=== PATIENT | female | born 1965 | race Caucasian/White ===

== ENCOUNTER 2021-04-10 17:52 | Emergency (ER) | payer BC, SELFPAY ==
[2021-04-10 17:53] VITALS: BP 160/93; PULSE 77; RESP 20; TEMP 36.9; O2SAT 98
[2021-04-10 19:41] VITALS: BP 142/85; PULSE 70; RESP 18; TEMP 36.6; O2SAT 100
--- NOTE | 2021-04-10 19:52 | ED.GENADULT ---
HPI - General Adult General Chief complaint: Unspecified Stated complaint: out of vicodin Time Seen by Provider: 04/10/21 19:42 Source: RN notes reviewed History of Present Illness HPI narrative: Patient presents emergency department from home for medication refill. Patient states she is on hydrocodone 7.5 for chronic neck and back pain states she is followed by b[facility] and painter and had a virtual appointment by phone on however the prescription that she is was to refill did not make it to the pharmacy there is not any on-call for her bumper and painter she try to contact as well as Connie patient states she did take half a pill this morning as well as this afternoon as she only had 1 pill left she denies any new trauma or injury states that her current pain is consistent with her chronic pain denies any other symptoms at this time Related Data Home Medications Medication Instructions Recorded Confirmed gabapentin 04/10/21 hydrocodone-acetaminophen 04/10/21 Allergies Allergy/AdvReac Type Severity Reaction Status Date / Time codeine Allergy Itching Verified 04/10/21 19:43 Penicillins Allergy Unknown Verified 04/10/21 19:43 tramadol Allergy Insomnia Verified 04/10/21 19:44 Review of Systems Review of Systems: Gen.: Denies fevers or chills Eyes: Denies eye pain or visual change ENT: Denies congestion Respiratory: Denies shortness of breath CV: Denies chest pain GI: Denies abdominal pain nausea, emesis Musculoskeletal: See HPI Neuro: Denies numbness, tingling, weakness or focal weakness Skin: Denies rash Except as documented, all other systems reviewed and negative [facility] Past Medical History Medical History (Updated 04/10/21 @ 19:54 by Tay Recio DO) Chronic neck pain Social History Social History (Updated 04/10/21 @ 19:53 by Tay Recio DO) Smoking status: Current every day smoker Exam Narrative: APPEARANCE: No acute distress, nontoxic, resting in bed EYES: EOMI HEENT: Normocephalic, atraumatic, OMM RESPIRATORY: No respiratory distress Clear to auscultation bilaterally with no rhonchi wheezing or rales. CARDIOVASCULAR: Regular rate and rhythm without murmurs rubs or gallops. ABDOMINAL: Soft, nontender MUSCULOSKELETAl: Moves all extremities. NEURO: Awake and alert. Following commands, speech normal, no focal deficits SKIN:: Warm, dry. No rashes lesions or abrasions PSYCHIATRIC: Normal affect/mood, Course Course Emergency Course: Patient did drive herself to the emergency department discussed with the patient I would refill short amount of medication approximately 7 hydrocodone to get her through to Monday morning on her pain management doctor's office will reopen I did review the patient's previously filled medications and she has not recently had any [place] filled since 03/05/2021 Discussed with patient results of workup and diagnosis. Discussed need for follow-up with primary care, proper use of medication, and reasons to return to the emergency department. Patient understands and agrees to current treatment plan Vital Signs Vital signs: Vital Signs Temperature 98.4 F 04/10/21 17:53 Pulse Rate 77 04/10/21 17:53 Respiratory Rate 20 04/10/21 17:53 Blood Pressure 160/93 H 04/10/21 17:53 Pulse Oximetry 98 04/10/21 17:53 Temperature 97.9 F 04/10/21 19:41 Pulse Rate 70 04/10/21 19:41 Respiratory Rate 18 04/10/21 19:41 Blood Pressure 142/85 H 04/10/21 19:41 Pulse Oximetry 100 04/10/21 19:41 Medical Decision Making Vital Signs Vital Signs: Vital Signs Temperature 98.4 F 04/10/21 17:53 Pulse Rate 77 04/10/21 17:53 Respiratory Rate 20 04/10/21 17:53 Blood Pressure 160/93 H 04/10/21 17:53 Pulse Oximetry 98 04/10/21 17:53 Temperature 97.9 F 04/10/21 19:41 Pulse Rate 70 04/10/21 19:41 Respiratory Rate 18 04/10/21 19:41 Blood Pressure 142/85 H 04/10/21 19:41 Pulse Oximetry 100 04/10/21 1
== END 2021-04-10 20:11 | disposition home or self-care (01) ==
PROVIDERS: Emergency Provider Emergency Medicine
DX: G89.29 Other chronic pain (principal); M54.2 Cervicalgia; F17.200 Nicotine dependence, unspecified, uncomplicated
CPT/HCPCS: 99283

== ENCOUNTER 2021-11-08 08:15 | Outpatient (CLI) | payer BC, SELFPAY ==
--- NOTE | ~2021-11-08 | MM_ITS ---
EXAMINATION: MM screening balta BI w ailin HISTORY: Screening TECHNIQUE: Craniocaudal and mediolateral oblique 3-D tomosynthesis images were obtained and synthetic 2-D images were generated. CAD analysis was submitted and interpreted. COMPARISON: No prior mammogram is available for comparison at this institution. BREAST PARENCHYMAL COMPOSITION: There are scattered areas of fibroglandular density. FINDINGS: There is no evidence of suspicious mass, calcification, or architectural distortion to sugg est malignancy in either breast. There has been no suspicious interval change. IMPRESSION: 1. No mammographic evidence of malignancy. 2. Recommend routine screening mammography in one year. BI-RADS Category 1: Negative Reviewed, dictated and finalized at location A.
--- NOTE | ~2021-11-08 | DEXA_ITS ---
Bone Density Report Name: PATRICA THOMAS Age: 56 Sex: Female Ethnicity: White Date of : 1965 Indication: postmenopausal; height loss; prior fracture; hysterectomy; Referring Provider: TERESO YORK Study: Bone densitometry was performed. Exam Date: November 08, 2021 Accession number: [id number] Bone Density: Region BMD T-score Z-score Classification AP Spine (L1, L4) 1.044 0.1 1.2 Normal Femoral Neck (Left) 0.682 -1.5 -0.4 Osteopenia Total Hip (Left) 0.747 -1.6 -0.8 Osteopenia Total Hip Bilateral Avg 0.767 -1.5 -0.7 Osteopenia Femoral Neck (Right) 0.705 -1.3 -0.2 Osteopenia Total Hip (Right) 0.786 -1.3 -0.5 Osteopenia World Health Organization criteria for BMD impression classify patients as: Normal (T-score at or above -1.0), Osteopenia (T-score between -1.0 and -2.5), or Osteoporosis (T-score at or below -2.5). 10-year Fracture Risk(1): Major Osteoporotic Fracture 13% Hip Fracture 1.8% Reported Risk Factors: [place] (), Neck BMD=0.682, BMI=27.6, previous fracture, smoking (1) FRAX(R) Version 3.08. Fracture probability calculated for an untreated patient. Fracture probability may be lower if the patient has received treatment. Clinical Information Provided by Patient: Has had a low trauma fracture Smokes Has the following medical conditions: Hysterectomy Patient maximum height was 69 Menopause Age: 33 Drinks caffeinated beverages Onset of menses at age 11 Number of children 3 Impression: The patient has low bone mass, based on the Left Total Hip T-score. The patient has an estimated ten-year risk of hip fracture of 1.8% and an estimated ten-year risk of major fracture of 13%, based on the WHO FRAX algorithm. The patient has risk factors, including: smoking, previous fracture. Discussion: BONE DENSITY IS LOW AT ONE OR MORE SKELETAL SITES. This patient's lowest T-score is low at one or more skeletal sites. It meets the World Health Organization's (WHO) criteria for ?low bone mass? (T-score between -1.0 and -2.5). The patient's 10-year risk of fracture as calculated by FRAX is less than the threshold where pharmacological therapy is recommended by the National Osteoporosis Foundation (NOF). However, all treatment decisions require clinical judgment and consideration of individual patient factors, including patient preferences, comorbidities, previous drug use, risk factors not captured in the FRAX model (e.g., frailty, falls, vitamin D deficiency, increased bone turnover, interval significant decline in bone density) and possible under or overestimation of fracture risk by FRAX. The patient should follow a healthful lifestyle (good nutrition with adequate calcium and vitamin D, and appropriate weight-bearing exercise). Follow-Up: Consider repeating this study in 2 to 3 years to reasse
== END 2021-11-08 08:16 | disposition home or self-care (01) ==
LOC: ANHIMG 08:26
PROVIDERS: PCP Emergency Medicine; Visit Provider Emergency Medicine
DX: Z12.31 Encounter for screening mammogram for malignant neoplasm of breast (principal); Z78.0 Asymptomatic menopausal state; M85.852 Other specified disorders of bone density and structure, left thigh; M85.851 Other specified disorders of bone density and structure, right thigh
CPT/HCPCS: 77063; 77067; 77080

== ENCOUNTER 2023-04-04 13:32 | Outpatient (CLI) | payer BC, SELFPAY ==
--- NOTE | 2023-04-04 14:00 | NEURO_ITS ---
Impression: # Complain of severe back pain. No history of surgery and not diabetic. # Normal Nerve Conduction Study including motor, sensory and F-waves. # Needle/EMG exam not requested. # Clinical correlation recommended. Nerve Conduction Studies Anti Sensory Summary Table Stim Site NR Peak (ms) P-T Amp (?V) Site1 Site2 Delta-P (ms) Dist (cm) Brenton (m/s) Left Sup Fibular Anti Sensory (Ant Lat Mall) 14 cm 3.0 15.1 14 cm Ant Lat Mall 3.0 16.0 53 Right Sup Fibular Anti Sensory (Ant Lat Mall) 14 cm 3.3 4.0 14 cm Ant Lat Mall 3.3 16.0 48 Left Sural Anti Sensory (Lat Mall) Calf 3.5 4.6 Calf Lat Mall 3.5 16.0 46 Right Sural Anti Sensory (Lat Mall) Calf 3.4 6.5 Calf Lat Mall 3.4 16.0 47 Motor Summary Table Stim Site NR Onset (ms) O-P Amp (mV) Site1 Site2 Delta-0 (ms) Dist (cm) Brenton (m/s) Left Peroneal Motor (Vastus Med) Ankle 3.7 3.6 Popit Ankle 8.0 43.0 54 Popit 11.7 2.9 Right Peroneal Motor (Vastus Med) Ankle 3.6 3.5 Popit Ankle 8.1 40.0 49 Popit 11.7 2.8 Left Tibial Motor (Abd Rainey Brev) Ankle 3.9 4.2 Knee Ankle 9.0 43.0 48 Knee 12.9 3.4 Right Tibial Motor (Abd Rainey Brev) Ankle 3.4 2.2 Knee Ankle 9.3 42.0 45 Knee 12.7 1.6 F Wave Studies NR F-Lat (ms) L-R F-Lat (ms) Left Peroneal (Mrkrs) (EDB) 52.34 0.90 Right Peroneal (Mrkrs) (EDB) 51.44 0.90 Left Tibial (Mrkrs) (Abd Hallucis) 52.03 0.64 Right Tibial (Mrkrs) (Abd Hallucis) 52.67 0.64 MTDD
== END 2023-04-04 13:33 | disposition home or self-care (01) ==
PROVIDERS: PCP Emergency Medicine; Visit Provider Pain Medicine Pain Medicine
DX: M47.816 Spondylosis without myelopathy or radiculopathy, lumbar region (principal); M54.16 Radiculopathy, lumbar region; M46.1 Sacroiliitis, not elsewhere classified; M51.36 Other intervertebral disc degeneration, lumbar region; M54.40 Lumbago with sciatica, unspecified side; M79.7 Fibromyalgia
CPT/HCPCS: 95910

== ENCOUNTER 2023-04-26 18:08 | Emergency (ER) | payer BC, SELFPAY ==
--- NOTE | 2023-04-26 18:11 | PC.NURSE ---
Pt requesting wait time, she states she is very sick and is going to another ER
== END 2023-04-26 18:10 | disposition left against medical advice (07) ==
LOC: ANHED 18:15
PROVIDERS: PCP Emergency Medicine
DX: Z53.21 Procedure and treatment not carried out due to patient leaving prior to being seen by health care provider (principal)
CPT/HCPCS: 99199

== ENCOUNTER 2023-04-26 18:30 | Emergency (ER) | payer BC, SELFPAY ==
--- NOTE | ~2023-04-26 | XR_ITS ---
XR chest 2V DATE: 04/26/2023 18:51 INDICATION: Wheezing and cough for one week TECHNIQUE: 2 views COMPARISON: 06/26/2008 PA and lateral chest FINDINGS: Normal heart size. No hilar or mediastinal enlargement. Calcified left hilar and aortopulmo nary window nodes consistent with old granulomatous disease. No pulmonary infiltrate or consolidation , pleural effusion or pulmonary vascular congestion or pneumothorax is detected. IMPRESSION: No active cardiopulmonary disease Reviewed, dictated and finalized at location A.
[2023-04-26 18:36] VITALS: BP 118/80; PULSE 69; RESP 16; TEMP 36.6; O2SAT 97
--- NOTE | 2023-04-26 18:36 | ED.URI ---
HPI - URI/Sore Throat General Chief Complaint: Upper Respiratory Infection Stated Complaint: Chest Pain,Cough,Headache,Fever Source: patient and RN notes reviewed Mode of arrival: ambulatory Limitations: no limitations History of Present Illness HPI Narrative: Patient is a 58-year-old female who presents to the [facility] with complaints of cough and congestion for the past 8 days. Patient reports a frequent productive cough that was originally productive with yellow sputum. She states that the sputum has become clear but is thicker. She reports chest congestion and some intermittent shortness of breath. Patient has auditory wheezes upon assessment. She denies known history of asthma or COPD. Patient also reports headache and intermittent fevers. She states that these fevers will occasionally break throughout the day and she will experience sweats/chills. She denies sore throat or ear pain. She is currently afebrile. Patient states that she stopped smoking 3 weeks ago. Related Data Home Medications Medication Instructions Recorded Confirmed hydrocodone 10 mg-acetaminophen 1 tablet PO QID PRN Pain, Severe 04/26/23 04/26/23 325 mg tablet Allergies Allergy/AdvReac Type Severity Reaction Status Date / Time codeine Allergy Itching Verified 04/26/23 18:45 Penicillins Allergy Unknown Verified 04/26/23 18:45 tramadol Allergy Insomnia Verified 04/26/23 18:45 Review of Systems Review of Systems: CONSTITUTIONAL: Reports fever, chills, or sweats. EYES: Denies visual changes, redness, or discharge. ENT: Denies otalgia and sore throat. CARDIOVASCULAR: Denies chest pain, palpitations, or edema. RESPIRATORY: Reports cough or dyspnea. GASTROINTESTINAL: Denies abdominal pain, vomiting, or diarrhea. Reports nausea. GENITOURINARY: Denies dysuria or hematuria. SKIN: Denies rash or itching. MUSCULOSKELETAL: Denies back pain or joint pain. Reports myalgia. NEUROLOGIC: Reports headache but denies numbness or weakness. Pertinent positives per HPI. [facility] Past Medical History Medical History Chronic neck pain Social History Social History Smoking status: Current every day smoker Comments At the time of my signature, I reviewed and agree with the nursing past medical, surgical, social, and family history. There is no relevant family history pertinent to the patient complaint. Exam Narrative: GENERAL: This is a well-nourished, well-developed patient, in no apparent distress. HEAD: normocephalic, atraumatic. EYES: Sclera clear/white. Vision is grossly intact. EARS: External ears normal, auditory canals clear and without drainage, TMs normal without perforation. Hearing grossly intact. NOSE: External nose normal. Mild nasal congestion. THROAT: Mucous membranes moist, posterior pharynx clear. NECK: Neck supple, non-tender without lymphadenopathy, masses or thyromegaly. CARDIOVASCULAR: Regular rate and rhythm without murmurs, gallops, or rubs. RESPIRATORY: Diffuse wheezes throughout all lung stark. GASTROINTESTINAL: Abdomen soft, non-tender, nondistended. Bowel sounds are active. No hepato-splenomegaly, or palpable masses. No guarding. SKIN: warm, intact with no suspicious lesions or rash, good texture and turgor. NEURO: awake, alert, and oriented to person, place and time. There were no obvious focal neurologic abnormalities. Course Course Level of Care: Express Care Visit Vital Signs Vital signs: Vital Signs Temperature 98 F 04/26/23 18:36 Pulse Rate 69 04/26/23 18:36 Respiratory Rate 16 04/26/23 18:36 Blood Pressure 118/80 04/26/23 18:36 Pulse Oximetry 97 04/26/23 18:36 Temperature 98 F 04/26/23 18:36 Pulse Rate 69 04/26/23 18:36 Respiratory Rate 16 04/26/23 18:36 Blood Pressure 118/80 04/26/23 18:36 Pulse Oximetry 97 04/26/23 18:36 Oxygen Delivery Room
[2023-04-26] MEDS: ALBUTEROL SULFATE NEB 2.5 MG/3 ML INH INHALATION (18:51)
[2023-04-26] MEDS: methylPREDNISolone SOD SUCC 125 MG VIAL 80 MG IM (18:53)
[2023-04-26 19:25] VITALS: RESP 18; O2SAT 98
== END 2023-04-26 19:25 | disposition home or self-care (01) ==
PROVIDERS: Emergency Provider Nurse Practitioner; PCP Emergency Medicine
DX: J40 Bronchitis, not specified as acute or chronic (principal); Z20.822 Contact with and (suspected) exposure to COVID-19; Z87.891 Personal history of nicotine dependence
CPT/HCPCS: 71046; 87420; 87426; 96372; 99213; C9803; G0463; J2930

== ENCOUNTER 2023-09-19 19:16 | Emergency (ER) | payer BC, SELFPAY ==
[2023-09-19 19:23] VITALS: BP 119/82; PULSE 71; RESP 16; TEMP 36.4; O2SAT 99
--- NOTE | 2023-09-19 19:39 | ED.URI ---
HPI - URI/Sore Throat General Chief Complaint: Upper Respiratory Infection Stated Complaint: Fever;Headaches Time Seen by Provider: 09/19/23 19:37 Source: patient and RN notes reviewed Mode of arrival: ambulatory Limitations: no limitations History of Present Illness HPI Narrative: 58-year-old female presents concern for one-week history of general malaise, headaches, sinus congestion, sinus pain, cough, body aches. Reports she has taken [id number] medications and used her albuterol inhaler without relief. MD elicited complaint: cough and nasal congestion Related Data Home Medications Medication Instructions Recorded Confirmed hydrocodone 10 mg-acetaminophen 1 tablet PO QID PRN Pain, Severe 04/26/23 04/26/23 325 mg tablet Allergies Allergy/AdvReac Type Severity Reaction Status Date / Time codeine Allergy Itching Verified 09/19/23 19:47 Penicillins Allergy Unknown Verified 09/19/23 19:47 tramadol Allergy Insomnia Verified 09/19/23 19:47 Review of Systems Review of Systems: CONSTITUTIONAL: Reports malaise, chills, sweats, fever. EYES: Denies visual changes, redness, or discharge. ENT: Reports rhinorrhea, congestion, sinus pain. Denies otalgia and sore throat. CARDIOVASCULAR: Denies chest pain, palpitations, or edema. RESPIRATORY: Reports cough, chest congestion. Denies dyspnea. GASTROINTESTINAL: Denies abdominal pain, nausea, vomiting, diarrhea SKIN: Denies rash or itching. MUSCULOSKELETAL: Reports myalgia. NEUROLOGIC: Reports headache. All systems reviewed & are unremarkable except as noted in HPI and below PMFSH Past Medical History Medical History Chronic neck pain Social History Social History Smoking status: Current every day smoker Comments At time of signature, agree with nursing past medical, surgical, social and family history. There is no relevant family history pertinent to the presenting complaint Exam Narrative: GENERAL: Nontoxic-appearing, well-nourished, and in no acute distress. HEAD: Normocephalic EYES: PERRLA, conjunctivae clear ENT: Nares clear, turbinates edematous and erythematous, green discharge. Mucous membranes moist. TM pearly savage with dull light reflex bilaterally; no tragal tenderness. Oropharynx not erythematous without lesions. Tonsils not enlarged and without exudate, no drooling, no hoarseness, no trismus, uvula midline. NECK: Supple. No lymphadenopathy CHEST: Expiratory wheeze throughout, scattered rhonchi, breath sounds equal. No rales, or stridor. No respiratory distress, speaks in full sentences. HEART: Regular rate and rhythm. No murmur heard. SKIN: Warm, dry, no rash. NEURO: Alert and oriented x3. PSYCH: Normal mood and affect Course Course Emergency Course: Patient is aware of diagnosis, understands and agrees to treatment plan. Anticipatory guidance given. Patient agrees to follow-up as directed and is aware of reasons to seek care at the emergency department. Portions of this record may have been created with voice recognition software Level of Care: Express Care Visit Vital Signs Vital signs: Vital Signs Temperature 97.6 F 09/19/23 19:23 Pulse Rate 71 09/19/23 19:23 Respiratory Rate 16 09/19/23 19:23 Blood Pressure 119/82 09/19/23 19:23 Pulse Oximetry 99 09/19/23 19:23 Temperature 97.6 F 09/19/23 19:23 Pulse Rate 71 09/19/23 19:23 Respiratory Rate 16 09/19/23 19:23 Blood Pressure 119/82 09/19/23 19:23 Pulse Oximetry 99 09/19/23 19:23 Reviewed. MDM - URI/Sore Throat MDM Narrative Medical decision making narrative: Differential diagnosis considered: Lombardo virus, strep pharyngitis, allergic rhinitis, upper respiratory tract infection, sinusitis, rhinosinusitis, nasopharyngitis. viral pharyngitis, otitis media, otitis externa, pneumonia, bronchitis, viral cough syndrome, vir
== END 2023-09-19 19:48 | disposition home or self-care (01) ==
PROVIDERS: Emergency Provider Nurse Practitioner; PCP Emergency Medicine
DX: J40 Bronchitis, not specified as acute or chronic (principal)
CPT/HCPCS: 99213; G0463

== ENCOUNTER 2023-10-30 14:48 | Emergency (ER) | payer BC, SELFPAY ==
[2023-10-30 14:50] VITALS: BP 118/60; PULSE 78; RESP 20; TEMP 36.8; O2SAT 99
--- NOTE | 2023-10-30 15:17 | ED.GENADULT ---
[facility] - General Adult General Chief complaint: Extremity Problem,Nontraumatic Stated complaint: R wrist ganglion cyst Source: patient Mode of arrival: ambulatory Limitations: no limitations History of Present Illness [facility] narrative: This is a 58-year-old female who presents to the ED with chief complaint focal area of right wrist swelling for the past several weeks. Reports this is been an ongoing problem intermittently for several months. She was told that it may be a ganglion cyst and has yet to follow up with surgeon. Reports pain but no redness or warmth. Denies numbness or weakness. Denies any further sites of pain Related Data Home Medications Medication Instructions Recorded Confirmed hydrocodone 10 mg-acetaminophen 1 tablet PO QID PRN Pain, Severe 04/26/23 04/26/23 325 mg tablet Allergies Allergy/AdvReac Type Severity Reaction Status Date / Time codeine Allergy Itching Verified 09/19/23 19:47 Penicillins Allergy Unknown Verified 09/19/23 19:47 tramadol Allergy Insomnia Verified 09/19/23 19:47 Review of Systems Review of Systems: All systems as dictated in [facility] Past Medical History Medical History Chronic neck pain Social History Social History Smoking status: Current every day smoker Exam Narrative: GENERAL: Well-appearing, well-nourished, and in no acute distress. HEAD: Normocephalic, atraumatic. EYES: PERRLA and EOMI. ENT: Nares clear, no rhinorrhea or epistaxis. Mucous membranes moist. Oropharynx without tonsillar hypertrophy exudate or other lesions. NECK: Supple. No adenopathy or masses. CHEST: No respiratory distress. Clear to auscultation. No wheezes rales or rhonchi HEART: Regular rate and rhythm. No murmur heard. Normal peripheral pulses. ABDOMEN: Soft, nontender, nondistended, normal active bowel sounds. MSK: Normal range of motion. No edema. SKIN: small cystic area noted to the ulnar side of the room right wrist. No surrounding erythema. No rash. Mild tenderness NEURO: Alert and oriented x3. No focal deficits. PSYCH: Normal mood and affect. Course Vital Signs Vital signs: Vital Signs Temperature 98.3 F 10/30/23 14:50 Pulse Rate 78 10/30/23 14:50 Respiratory Rate 20 10/30/23 14:50 Blood Pressure 118/60 10/30/23 14:50 Pulse Oximetry 99 10/30/23 14:50 Oxygen Delivery Room Air 10/30/23 14:50 Temperature 98.3 F 10/30/23 14:50 Pulse Rate 78 10/30/23 14:50 Respiratory Rate 20 10/30/23 14:50 Blood Pressure 118/60 10/30/23 14:50 Pulse Oximetry 99 10/30/23 14:50 Oxygen Delivery Room Air 10/30/23 14:50 Medical Decision Making MDM Narrative Medical decision making narrative: this is a 58-year-old female who presents to the ED with chief complaint of right wrist swelling intermittently for the past several months. Vitals are normal. Exam shows a cystic lesion to the right wrist, consistent with ganglion cyst. She has been told in the past that she needs to have this evaluated by a surgeon but has not followed up yet. We discussed that drainage is un likely to provide any significant symptomatic relief and we would risk it introducing infection. She feels more comfortable with not having the restrained here. She would like to follow-up with surgery as directed by her PCP. Pt will be discharged in stable condition. Return precautions given and supportive measures discussed. Pt is understanding and agreeable with plan for discharge and follow-up with PCP. Vital Signs Vital Signs: Vital Signs Temperature 98.3 F 10/30/23 14:50 Pulse Rate 78 10/30/23 14:50 Respiratory Rate 20 10/30/23 14:50 Blood Pressure 118/60 10/30/23 14:50 Pulse Oximetry 99 10/30/23 14:50 Oxygen Delivery Room Air 10/30/23 14:50 Temperature 98.3 F 10/30/23 14:50 Pulse Rate 78 10/30/23
== END 2023-10-30 15:32 | disposition home or self-care (01) ==
LOC: ANHED 15:29
PROVIDERS: Emergency Provider Physician Assistant; PCP Emergency Medicine
DX: M67.431 Ganglion, right wrist (principal); F17.200 Nicotine dependence, unspecified, uncomplicated
CPT/HCPCS: 99281

== ENCOUNTER 2024-04-29 10:51 | Emergency (ER) | payer OTHER, SELFPAY ==
[2024-04-29 10:59] VITALS: BP 112/74; PULSE 77; RESP 16; TEMP 36.3; O2SAT 100
--- NOTE | 2024-04-29 11:17 | ED.URI ---
HPI - URI/Sore Throat General Chief Complaint: Upper Respiratory Infection Stated Complaint: Cough/Fever Time Seen by Provider: 04/29/24 11:12 Source: patient, RN notes reviewed and old records reviewed Mode of arrival: ambulatory Limitations: no limitations History of Present Illness HPI Narrative: 59 year old female who presents to [facility] with complaints of cough since Monday with expectoration of yellow mucous and also fevers and headache which resolved on Monday.Patient admits to some sinus congestion and drainage, denies any sore throat or acute ear pain. Patient reports that she has been taking some left over Amoxicillin she had and also Tessalon Perles for her cough, states is out of her inhaler.. MD elicited complaint: fever, cough, rhinorrhea, nasal congestion and other (headache) Pertinent past history: pneumonia and other (bronchitis, tobacco abuse) Onset (ago): day(s) (4 days) Severity: moderate Able to tolerate fluids by mouth: Yes Treatments prior to arrival: other (Tessalon Perles and left over Amoxicillin) Related Data Home Medications Medication Instructions Recorded Confirmed hydrocodone 10 mg-acetaminophen 1 tablet PO QID PRN Pain, Severe 04/26/23 04/29/24 325 mg tablet duloxetine 60 mg capsule,delayed 60 mg PO DAILY 04/29/24 04/29/24 release (Cymbalta) Allergies Allergy/AdvReac Type Severity Reaction Status Date / Time codeine Allergy Itching Verified 04/29/24 11:07 Penicillins Allergy Unknown Verified 04/29/24 11:07 tramadol Allergy Insomnia Verified 04/29/24 11:07 Review of Systems Review of Systems: CONSTITUTIONAL: Reports malaise, chills, sweats, or fever. EYES: Denies visual changes, redness, or discharge. ENT: Reports rhinorrhea, congestion, sinus pain,no otalgia and no sore throat. CARDIOVASCULAR: Denies chest pain, palpitations, or edema. RESPIRATORY: Reports cough.? Denies dyspnea. GASTROINTESTINAL: Denies abdominal pain, nausea, vomiting, diarrhea SKIN: Denies rash or itching. MUSCULOSKELETAL: Denies myalgia. NEUROLOGIC: Reports headache. All systems reviewed & are unremarkable except as noted in HPI and below PMFSH Past Medical History Medical History Asthma Chronic neck pain COPD (chronic obstructive pulmonary disease) Fibromyalgia Surgical History Surgical History H/O: hysterectomy Social History Social History Smoking status: Current every day smoker Comments At time of signature, agree with nursing past medical, surgical, social and family history. There is no relevant family history pertinent to the presenting complaint Exam Narrative: GENERAL: Well-appearing, well-nourished, and in no acute distress. HEAD: Normocephalic EYES: PERRLA, conjunctivae clear ENT: Nares clear, turbinates edematous and erythematous, clear discharge. Mucous membranes moist. TM pearly savage with dull light reflex bilaterally; no tragal tenderness. Oropharynx erythematous without lesions. Tonsils not enlarged and without exudate, no drooling, no hoarseness, no trismus, uvula midline. post nasal drainage noted NECK: Supple. No lymphadenopathy CHEST: Scattered wheezing on auscultation, breath sounds equal. positive for wheezing, no rhonchi, rales, or stridor. No respiratory distress, speaks in full sentences.cough productive of yellowish mucous. SAO2 100% o room air HEART: Regular rate and rhythm. No murmur heard. SKIN: Warm, dry, no rash. NEURO: Alert and oriented x3. PSYCH: Normal mood and affect Course Course Emergency Course: Patient is aware of diagnosis, understands and agrees to treatment plan.? Anticipatory guidance given.? Patient agrees to follow-up as directed and is aware of reasons to seek care at the emergency department. Portions of this record may have been cre
== END 2024-04-29 11:31 | disposition home or self-care (01) ==
PROVIDERS: Emergency Provider Registered Nurse; PCP Emergency Medicine
DX: J40 Bronchitis, not specified as acute or chronic (principal); J44.9 Chronic obstructive pulmonary disease, unspecified; M79.7 Fibromyalgia; F17.200 Nicotine dependence, unspecified, uncomplicated
CPT/HCPCS: 99213; G0463